=== PATIENT | male | born 1970 | race American Indian/Alaskan Native ===

== ENCOUNTER 2018-10-24 21:18 | Inpatient (IN) | payer OTHER ==
[2018-10-24] MEDS ORDERED: Labetalol 25mg/5ml Syringe IVP STA ×4 (22:04→23:38)
[2018-10-24] MEDS ORDERED: Labetalol 5mg/ml (4ml) ONE ×4 (22:05→23:29)
--- NOTE | 2018-10-24 22:05 | C.PDOC ---
History Of Present Illness 48 year old male presents to the ER stating he has been feeling SOB on exertion for the past 2-3 days. Denies chest pain, lightheadedness. nausea, vomiting, or any PMHx. Chief Complaint (Nursing): Shortness Of Breath History Per: Patient History/Exam Limitations: no limitations Onset/Duration Of Symptoms: Days (2-3) Current Symptoms Are (Timing): Still Present Current Respiratory Medications: See Home Med List Associated Symptoms: denies: Chest Pain, Light-headedness, Other (Nausea, vomiting) Recent travel outside of the [place]: No Past Medical History Reviewed: Historical Data, Nursing Documentation, Vital Signs Vital Signs: Last Vital Signs Temp 97.5 F L 10/24/18 21:42 Pulse 120 H 10/24/18 21:42 Resp 36 H 10/24/18 21:42 BP 220/140 H 10/24/18 21:42 Pulse Ox 96 10/24/18 21:42 Family History: States: Unknown Family Hx - Social History Hx Alcohol Use: No Hx Substance Use: No Review Of Systems Constitutional: Negative for: Fever, Chills Cardiovascular: Negative for: Chest Pain, Light Headedness Respiratory: Positive for: SOB with Excertion Gastrointestinal: Negative for: Nausea, Vomiting Neurological: Negative for: Weakness, Numbness Physical Exam - Physical Exam Appears: Non-toxic Skin: Normal Color, Warm, Dry Head: Atraumatic, Normacephalic Eye(s): bilateral: Normal Inspection, PERRL, EOMI Oral Mucosa: Moist Neck: Normal, Supple Chest: Symmetrical, No Tenderness Cardiovascular: Rhythm Regular, Other (Hypertensive) Respiratory: Normal Breath Sounds, No Rales, No Rhonchi, No Wheezing Gastrointestinal/Abdominal: Soft, No Tenderness Neurological/Psych: Oriented x3, Normal Speech ED Course And Treatment - Laboratory Results Result Diagrams: 10/24/18 22:18 10/24/18 22:18 O2 Sat by Pulse Oximetry: 96 (Room air) Pulse Ox Interpretation: Normal Progress Note: EKG ordered. Disposition Discussed With : Sonia Juares Doctor Will See Patient In The: Hospital Counseled Patient/Family Regarding: Diagnosis - Disposition Disposition: HOSPITALIZED Disposition Time: 23:42 Condition: STABLE Forms: [facility] ([place]) - POA Present On Arrival: None - Clinical Impression Clinical Impression: Hypertensive urgency, CHF (congestive heart failure), Non-STEMI (non-ST elevated myocardial infarction) - Scribe Statement The provider has reviewed the documentation as recorded by the Scribrgiffin Mccall All medical record entries made by the Scribe were at my direction and personally dictated by me. I have reviewed the chart and agree that the record accurately reflects my personal performance of the history, physical exam, medical decision making, and the department course for this patient. I have also personally directed, reviewed, and agree with the discharge instructions and disposition.
[2018-10-24] MEDS ORDERED: Labetalol 5 mg/ml Inj 20ML IV STA (22:21)
[2018-10-24 22:29] LABS: BASO # 0.1 K/uL (0.0-0.2); EOS # 0.1 K/uL (0.0-0.7); EOS % 1.1 % (0.0-4.0); HEMOGLOBIN 14.1 g/dL (12.0-18.0); LYMPH # 1.5 K/uL (1.0-4.3); MEAN CELL VOLUME 86.9 fL (80.0-94.0); MEAN CORPUSCULAR HEMOGLOBIN 27.8 pg (27.0-31.0); MEAN PLATELET VOLUME 10.7 fL (7.2-11.7); MONO # 0.5 K/uL (0.0-0.8); NEUT # 3.7 K/uL (1.8-7.0); NEUT % 63.9 % (50.0-75.0); NRBC % 0.2 % (0.0-2.0); RBC 5.06 Mil/uL (4.40-5.90); RED CELL DISTRIBUTION WIDTH 16.9 % (11.5-14.5); WHITE BLOOD COUNT 5.8 K/uL (4.8-10.8)
[2018-10-24] MEDS ORDERED: Labetalol 5mg/ml (4ml) IVP ONE (22:40)
[2018-10-24 22:43] LABS: INR 1.4; PROTHROMBIN TIME 15.4 SECONDS (9.7-12.2)
[2018-10-24 22:44] LABS: ALB/GLOB RATIO 1.1 (1.0-2.1); ALBUMIN 4.3 g/dL (3.5-5.0); BLOOD UREA NITROGEN 19 mg/dL (9-20); CALCIUM 8.8 mg/dl (8.6-10.4); GFR NON-AFRICAN AMERICAN > 60
[2018-10-24 22:45] LABS: ALT/SGPT 107 U/L (21-72); AST/SGOT 97 U/L (17-59)
[2018-10-24 22:57] LABS: B-TYPE NATRIURETIC PEPTIDE 8670 pg/mL (0-450)
[2018-10-24] MEDS ORDERED: Nitroglycerin 2% Ointment Foilpak UD TOP STA (22:58)
[2018-10-24] MEDS ORDERED: Nitroglycerin 2% Ointment Foilpak UD TOP ONE (23:06)
[2018-10-24 23:24] LABS: URINE BILIRUBIN NEGATIVE (NEGATIVE); URINE BLOOD 1+ (NEGATIVE); URINE CLARITY Clear (Clear); URINE COLOR Yellow (YELLOW); URINE GLUCOSE (UA) NORMAL (Normal); URINE HYALINE CAST 0-2 /lpf (0-2); URINE LEUKOCYTE ESTERASE NEG Leu/uL (Negative); URINE PROTEIN 2+ mg/dL (NEGATIVE)
--- NOTE | 2018-10-25 00:34 | CP.CCUPN ---
CCU Subjective - Physician Review Events Since Last Encounter (Free Text): 48 male with no significant past medical history came to ER complaining of SOB on exertion for couple days, no chest pain, no fever, no cough, no vomiting, no headache found to have elevated blood pressure, events reviewed CCU Objective - Vital Signs / Intake & Output Vital Signs (Last 4 hours): Vital Signs Temp Pulse Resp BP Pulse Ox 10/25/18 00:15 84 30 H 187/125 H 99 10/24/18 23:44 96 10/24/18 22:54 88 16 160/116 H 100 10/24/18 22:12 92 H 183/103 H 100 10/24/18 22:05 117 H 222/161 H 10/24/18 21:42 97.5 F L 120 H 36 H 220/140 H 96 Intake and Output (Last 8hrs): Intake & Output 10/24/18 10/24/18 10/25/18 14:59 22:59 06:59 Weight 220 lb - Physical Exam Head: Positive for: Atraumatic, Normocephalic Pupils: Positive for: PERRL Extroacular Muscles: Positive for: EOMI Conjunctiva: Positive for: Normal Ears: Positive for: Normal Mouth: Positive for: Moist Mucous Membranes Pharnyx: Positive for: Normal Nose (External): Positive for: Atraumatic Neck: Positive for: Normal Range of Motion Respiratory/Chest: Positive for: Rales Cardiovascular: Positive for: Regular Rate and Rhythm Abdomen: Positive for: Normal Bowel Sounds Upper Extremity: Positive for: Normal Inspection Lower Extremity: Positive for: Normal Inspection Neurological: Positive for: GCS=15, Speech Normal Skin: Positive for: Normal Color Psychiatric: Positive for: Alert, Oriented x 3 - Patient Studies Lab Studies: Lab Studies 10/24/18 10/24/18 10/24/18 Range/Units 23:19 22:18 22:18 WBC (4.8-10.8) K/uL RBC (4.40-5.90) Mil/uL Hgb (12.0-18.0) g/dL Hct (35.0-51.0) % MCV (80.0-94.0) fL MCH (27.0-31.0) pg MCHC (33.0-37.0) g/dL RDW (11.5-14.5) % Plt Count (130-400) K/uL MPV (7.2-11.7) fL Neut % (Auto) (50.0-75.0) % Lymph % (Auto) (20.0-40.0) % Henry % (Auto) (0.0-10.0) % Eos % (Auto) (0.0-4.0) % Baso % (Auto) (0.0-2.0) % Neut # (Auto) (1.8-7.0) K/uL Lymph # (Auto) (1.0-4.3) K/uL Henry # (Auto) (0.0-0.8) K/uL Eos # (Auto) (0.0-0.7) K/uL Baso # (Auto) (0.0-0.2) K/uL PT 15.4 H (9.7-12.2) SECONDS INR 1.4 APTT 32 (21-34) SECONDS Sodium 137 (132-148) mmol/L Potassium 4.3 (3.6-5.2) mmol/L Chloride 104 (98-107) mmol/L Carbon Dioxide 22 (22-30) mmol/L Anion Gap 16 (10-20) BUN 19 (9-20) mg/dL Creatinine 1.0 (0.8-1.5) mg/dL Est GFR ( Amer) > 60 Est GFR (Non-Af Amer) > 60 Random Glucose 111 H (75-110) mg/dL Calcium 8.8 (8.6-10.4) mg/dl Total Bilirubin 1.4 H (0.2-1.3) mg/dL AST 97 H (17-59) U/L ALT 107 H (21-72) U/L Alkaline Phosphatase 144 H (38-126) U/L Troponin I 0.1290 H* (0.00-0.120) ng/mL NT-Pro-B Natriuret Pep 8670 H (0-450) pg/mL Total Protein 8.1 (6.3-8.3) g/dL Albumin 4.3 (3.5-5.0) g/dL Globulin 3.8 (2.2-3.9) gm/dL Albumin/Globulin Ratio 1.1 (1.0-2.1) Urine Color Yellow (YELLOW) Urine Clarity Clear (Clear) Urine pH 5.0 (5.0-8.0) Ur Specific [place] 1.023 (1.003-1.030) Urine Protein 2+ H (NEGATIVE) mg/dL Urine Glucose (UA) Normal (Normal) mg/dL Urine Ketones Negative (NEGATIVE) mg/dL Urine Blood 1+ H (NEGATIVE) Urine Nitrate Negative (NEGATIVE) Urine Bilirubin Negative (NEGATIVE) Urine Urobilinogen 2.0 (0.2-1.0) mg/dL Ur Leukocyte Esterase Neg (Negative) González/uL Urine WBC (Auto) 1 (0-5) /hpf Urine RBC (Auto) < 1 (0-3) /hpf Hyaline Casts 0-2 (0-2) /lpf 10/24/18 Range/Units 22:18 WBC 5.8 (4.8-10.8) K/uL RBC 5.06 (4.40-5.90) Mil/uL Hgb 14.1 (12.0-18.0) g/dL Hct 43.9 (35.0-51.0) % MCV 86.9 (80.0-94.0) fL MCH 27.8 (27.0-31.0) pg MCHC 32.0 L (33.0-37.0) g/dL RDW 16.9 H (11.5-14.5) % Plt Count 289 (130-400) K/uL MPV 10.7 (7.2-11.7) fL Neut % (Auto) 63.9 (50.0-75.0) % Lymph % (Auto) 25.0 (20.0-40.0) % Henry % (Auto) 9.0 (0.0-10.0) % Eos % (Auto) 1.1 (0.0-4.0) % Baso % (Auto) 1.0 (0.0-2.0) % Neut # (Auto) 3.7 (1.8-7.0) K/uL Lymph # (Auto) 1.5 (1.0-4.3) K/uL Henry # (Auto) 0.5 (0.0-0.8) K/uL Eos # (Auto) 0.1 (0.0-0.7) K/uL Baso # (Auto) 0.1 (0.0-0.2) K/uL PT (9.7-12.2) SECONDS INR APTT (21-34) SECONDS Sodium (132-148) mmol/L Potassium (3.6-5.2) mmol/L Chloride (98-107) mmol/L Carbon Dioxide (22-30) mmol/L Anion Gap (10-20) BUN (9-20) mg/dL Creatinine (0.8-1.5) mg/dL Est GFR ( Amer) Est GFR (Non-Af Amer) Random Glucose (75-110) mg/dL Calcium (8.6-10.4) mg/dl Total Bilirubin (0.2-1.3) mg/dL AST (17-59) U/L ALT (21-72) U/L Alkaline Phosphatase (38-126) U/L Troponin I (0.00-0.120) ng/mL NT-Pro-B Natriuret Pep (0-450) pg/mL Total Protein (6.3-8.3) g/dL Albumin (3.5-5.0) g/dL Globulin (2.2-3.9) gm/dL Albumin/Globulin Ratio (1.0-2.1) Urine Color (YELLOW) Urine Clarity (Clear) Urine pH (5.0-8.0) Ur Specific [place] (1.003-1.030) Urine Protein (NEGATIVE) mg/dL Urine Glucose (UA) (Normal) mg/dL Urine Ketones (NEGATIVE) mg/dL Urine Blood (NEGATIVE) Urine Nitrate (NEGATIVE) Urine Bilirubin (NEGATIVE) Urine Urobilinogen (0.2-1.0) mg/dL Ur Leukocyte Esterase (Negative) [place]/uL Urine WBC (Auto) (0-5) /hpf Urine RBC (Auto) (0-3) /hpf Hyaline Casts (0-2) /lpf Laboratory Results - last 24 hr 10/24/18 10/24/18 10/24/18 22:18 22:18 22:18 WBC 5.8 RBC 5.06 Hgb 14.1 Hct 43.9 MCV 86.9 MCH 27.8 MCHC 32.0 L RDW 16.9 H Plt Count 289 MPV 10.7 Neut % (Auto) 63.9 Lymph % (Auto) 25.0 Henry % (Auto) 9.0 Eos % (Auto) 1.1 Baso % (Auto) 1.0 Neut # (Auto) 3.7 Lymph # (Auto) 1.5 [place] # (Auto) 0.5 Eos # (Auto) 0.1 Baso # (Auto) 0.1 PT 15.4 H INR 1.4 APTT 32 Sodium 137 Potassium 4.3 Chloride 104 Carbon Dioxide 22 Anion Gap 16 BUN 19 Creatinine 1.0 Est GFR ( Amer) > 60 Est GFR (Non-Af Amer) > 60 Random Glucose 111 H Calcium 8.8 Total Bilirubin 1.4 H AST 97 H ALT 107 H Alkaline Phosphatase 144 H Troponin I 0.1290 H* NT-Pro-B Natriuret Pep 8670 H Total Protein 8.1 Albumin 4.3 Globulin 3.8 Albumin/Globulin Ratio 1.1 Urine Color Urine Clarity Urine pH Ur Specific [place] Urine Protein Urine Glucose (UA) Urine Ketones Urine Blood Urine Nitrate Urine Bilirubin Urine Urobilinogen Ur Leukocyte Esterase Urine WBC (Auto) Urine RBC (Auto) Hyaline Casts 10/24/18 23:19 WBC RBC Hgb Hct MCV MCH MCHC RDW Plt Count MPV Neut % (Auto) Lymph % (Auto) Henry % (Auto) Eos % (Auto) Baso % (Auto) Neut # (Auto) Lymph # (Auto) Henry # (Auto) Eos # (Auto) Baso # (Auto) PT INR APTT Sodium Potassium Chloride Carbon Dioxide Anion Gap BUN Creatinine Est GFR ( Amer) Est GFR (Non-Af Amer) Random Glucose Calcium Total Bilirubin AST ALT Alkaline Phosphatase Troponin I NT-Pro-B Natriuret Pep Total Protein Albumin Globulin Albumin/Globulin Ratio Urine Color Yellow Urine Clarity Clear Urine pH 5.0 Ur Specific [place] 1.023 Urine Protein 2+ H Urine Glucose (UA) Normal Urine Ketones Negative Urine Blood 1+ H Urine Nitrate Negative Urine Bilirubin Negative Urine Urobilinogen 2.0 Ur Leukocyte Esterase Neg Urine WBC (Auto) 1 Urine RBC (Auto) < 1 Hyaline Casts 0-2 EKG/Cardiology Studies: Cardiology / EKG Studies 10/24/18 21:44 EKG [ELECTROCARDIOGRAM] Stat Comment: Mode Of Transportation: BED Reason For Exam: cp Assessment/Plan - Assessment and Plan (Free Text) Assessment: A/P Respiratory insufficiency, uncontrolled HTN, CHF, NSTEMI - Blood pressure control - Aspirin, Lasix, nitrate - Cardiac enzymes - Cardiology consult as per PMD - Electrocardiogram - DVT prophylaxis Critical care 35 min
[2018-10-25] MEDS: Nitroglycerin 2% Ointment Foilpak UD TOP ONE ×2 (02:19→06:57)
[2018-10-25 06:37] LABS: BASO # 0.1 K/uL (0.0-0.2); BASO % 0.9 % (0.0-2.0); EOS % 0.6 % (0.0-4.0); HEMOGLOBIN 12.7 g/dL (12.0-18.0); LYMPH # 1.2 K/uL (1.0-4.3); LYMPH % 20.7 % (20.0-40.0); MEAN CELL VOLUME 86.7 fL (80.0-94.0); MEAN CORPUSCULAR HEMOGLOBIN 28.2 pg (27.0-31.0); MEAN CORPUSCULAR HGB CONC 32.5 g/dL (33.0-37.0); MEAN PLATELET VOLUME 10.7 fL (7.2-11.7); MONO # 0.6 K/uL (0.0-0.8); NEUT # 3.8 K/uL (1.8-7.0); NEUT % 67.8 % (50.0-75.0); NRBC % 0.2 % (0.0-2.0); RBC 4.49 Mil/uL (4.40-5.90); RED CELL DISTRIBUTION WIDTH 16.4 % (11.5-14.5); WHITE BLOOD COUNT 5.7 K/uL (4.8-10.8)
[2018-10-25 06:51] LABS: ALB/GLOB RATIO 1.1 (1.0-2.1); ALBUMIN 3.7 g/dL (3.5-5.0); ALT/SGPT 92 U/L (21-72); AST/SGOT 74 U/L (17-59); BLOOD UREA NITROGEN 18 mg/dL (9-20); CALCIUM 8.4 mg/dl (8.6-10.4); GFR NON-AFRICAN AMERICAN > 60
[2018-10-25] MEDS ORDERED: Nitroglycerin 2% Ointment Foilpak UD TOP ONE (06:56)
--- NOTE | 2018-10-25 08:25 | RAD ---
Chest x-ray single frontal view HISTORY: Chest pain. Comparison: None available. Findings: Moderate to severe venous congestion. Right hilar prominence. Small left pleural effusion. Cardiomegaly. Upper lobe granulomatous changes. Degenerative changes in the spine and shoulders. Impression: Moderate to severe venous congestion. Right hilar prominence. Small left pleural effusion. Cardiomegaly. Upper lobe granulomatous changes.
--- NOTE | 2018-10-25 14:06 | CT ---
Date of service: 10/25/2018 PROCEDURE: CT HEAD WITHOUT CONTRAST. HISTORY: HTN, accerlerated COMPARISON: None available. TECHNIQUE: Axial computed tomography images were obtained through the head/brain without intravenous contrast. Radiation dose: Total exam DLP = 1152.22 mGy-cm. This CT exam was performed using one or more of the following dose reduction techniques: Automated exposure control, adjustment of the mA and/or kV according to patient size, and/or use of iterative reconstruction technique. FINDINGS: HEMORRHAGE: No intracranial hemorrhage. BRAIN: Coulter-white matter differentiation is preserved. There is no mass, mass effect or abnormal extra-axial fluid collection. There are scattered small coarse calcifications in both cerebral hemispheres nonspecific and could be a sequela of remote infection/inflammation. There is no territorial infarction. The midline sagittal structures are normal. VENTRICLES: The ventricles are normal in size, shape and configuration. CALVARIUM: There is no calvarial fracture. Small left medial periorbital soft tissue hematoma. PARANASAL SINUSES: Predominantly clear. MASTOID AIR CELLS: Predominantly clear. OTHER FINDINGS: None. IMPRESSION: No acute intracranial abnormality.
--- NOTE | 2018-10-25 14:12 | CON ---
DATE: 10/25/2018nsion. HISTORY OF PRESENT ILLNESS: The patient is 48-year-old male who is unaware of any past medical history; however, he has not seen a physician in many years and he takes aspirin and Advil for headache. He presented because of shortness of breath for the past 2 to 3 days. He denies any dizziness, occipital headache or chest pain. The patient was found to have accelerated hypertension. The patient was evaluated by validation specialist, but ICU admission was declined. At the time of my evaluation, the patient denies any chest pain, blurry vision, headache or dizziness. SOCIAL HISTORY: The patient is a smoker, drinker. 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 He is single but has children. MEDICATIONS: Aspirin 325 mg daily, heparin 5000 units subcutaneously every 8 hours, Lopressor 25 mg twice a day, Zestril 5 mg once a day. PHYSICAL EXAMINATION: GENERAL: The patient is a middle-aged male who does not appear to be in acute distress. VITAL SIGNS: Most recent blood pressure is 189/134, heart rate 88, temperature 98.6, respirations 18. HEENT: Normocephalic. NECK: JVD. CHEST: Clear. HEART: S1 and S2 regular. ABDOMEN: Soft. EXTREMITIES: No edema. LABORATORY DATA: Today's hemoglobin, hematocrit, white count and platelet count are within normal limit. Today's SMA-7 is within normal limits except for carbon dioxide of 19. First troponin 0.129 which is slightly elevated, second one is 0.107. ProBNP is 8670. INR is 1.4. PTT 32. EKG revealed sinus tachycardia, left atrial enlargement, left anterior fascicular block, LVH with repolarization changes. Chest x-ray revealed cardiomegaly with moderate CHF. Echocardiography study revealed LVH with severely depressed left ventricular systolic function and mild circumferential pericardial effusion, moderate mitral insufficiency, and moderate pulmonary hypertension. ASSESSMENT: 1. Hypertensive urgency. 2. Consider hypertensive cardiomyopathy. RECOMMENDATIONS: I will start the patient on Lasix at 20 mg intravenous twice a day, clonidine 0.2 mg every 8 hours, increase Zestril to 10 mg daily, Lopressor to 50 mg twice a day, Aldactone at 25 mg orally daily, to consider a full anticoagulation when the blood pressure is optimally controlled. Obtain urine drug screen as well as head CT scan without contrast. Tanner Pepe MD [facility] # [id number]
--- NOTE | 2018-10-25 14:50 | CARD ---
APPROVED REPORT Date of service: 10/25/2018 EXAM: Two-dimensional and M-mode echocardiogram with Doppler and color Doppler. Other Information Quality : GoodRhythm : INDICATION Congestive Heart Failure 2D DIMENSIONS IVSd1.3 (0.7-1.1cm)LVDd6.3 (3.9-5.9cm) PWd1.6 (0.7-1.1cm)LA Xzlccv196 (18-58mL) LVDs5.2 (2.5-4.0cm)FS (%) 17.0 % LVEF (%)34.9 (>50%)LVEF (Lopez's)35 % M-Mode DIMENSIONS Left Atrium (MM)5.58 (2.5-4.0cm)IVSd1.70 (0.7-1.1cm) Aortic Root3.66 (2.2-3.7cm)LVDd6.72 (4.0-5.6cm) Aortic Cusp Exc.2.85 (1.5-2.0cm)PWd1.73 (0.7-1.1cm) FS (%) 16 %LVDs5.62 (2.0-3.8cm) LVEF (%)34 (>50%) Mitral Valve MV E Iwnhlmqh02.9cm/sMV A Roojtbsg89.2cm/sE/A ratio2.3 ILLP035.87 cm/s TDI Lateral E' Peak V7.00cm/sMedial E' Peak V5.19cm/sE/Lateral E'11.0 E/Medial E'14.8 Tricuspid Valve TR Peak Qmdhjter435jh/sTR Peak Gr.09qmPsZJHU27ynXy LEFT VENTRICLE The Left Ventricle is mildly dilated. There is borderline concentric left ventricular hypertrophy. The systolic function is severely impaired. The left ventricular diastolic function is normal. RIGHT VENTRICLE The right ventricle is normal size. ATRIA The left atrium is moderately dilated. The right atrium is moderately dilated. AORTIC VALVE The aortic valve is normal in structure. MITRAL VALVE Mitral regurgitation is mild to moderate. TRICUSPID VALVE There is moderate to severe tricuspid regurgitation. <Conclusion> Severe LV systolic dysfunction. Dilated LA and LV. Mild to moderat eMR. Moderate to severe TR.
[2018-10-25] MEDS ORDERED: Nitroglycerin 2% Ointment Foilpak UD TOP PRN (16:36)
--- NOTE | 2018-10-25 19:43 | CP.PCM.HP ---
History of Present Illness - History of Present Illness History of Present Illness: pt came to ed for sob Present on Admission - Present on Admission Any Indicators Present on Admission: No Review of Systems - Review of Systems Systems not reviewed;Unavailable: Acuity of Condition, Respiratory Distress - Constitutional Constitutional: Excessive Sweating, Fatigue - EENT Eyes: As Per HPI Ears: As Per HPI Nose/Mouth/Throat: As Per HPI - Cardiovascular Cardiovascular: Diaphoresis, Dyspnea - Respiratory Respiratory: Dyspnea - Gastrointestinal Gastrointestinal: As Per HPI - Genitourinary Genitourinary: As Per HPI - Reproductive: Male Reproductive:Male: As Per HPI - Musculoskeletal Musculoskeletal: As Per HPI - Integumentary Integumentary: As Per HPI - Neurological Neurological: As Per HPI - Psychiatric Psychiatric: As Per HPI - Endocrine Endocrine: As Per HPI - Hematologic/Lymphatic Hematologic: As Per HPI Past Patient History - Past Medical History & Family History Past Medical History?: No - Past Social History Smoking Status: Current Some Days Smoker - MUSCULOSKELETAL/RHEUMATOLOGICAL Hx Falls: No - PSYCHIATRIC Hx Substance Use: No - SURGICAL HISTORY Hx Surgeries: No - ANESTHESIA Hx Anesthesia: No Has any member of the family had a problem w/ anesthesia?: No Meds Allergies/Adverse Reactions: Allergies Allergy/AdvReac Type Severity Reaction Status Date / Time No Known Allergies Allergy Unverified 10/24/18 21:45 Results - Vital Signs Recent Vital Signs: Last Vital Signs Temp 98.5 F 10/25/18 14:50 Pulse 82 10/25/18 15:00 Resp 24 10/25/18 14:50 BP 170/109 H 10/25/18 14:50 Pulse Ox 95 10/25/18 14:50 - Labs Result Diagrams: 10/25/18 06:26 10/25/18 06:26 Labs: Laboratory Results - last 24 hr 10/24/18 10/24/18 10/24/18 22:18 22:18 22:18 WBC 5.8 RBC 5.06 Hgb 14.1 Hct 43.9 MCV 86.9 MCH 27.8 MCHC 32.0 L RDW 16.9 H Plt Count 289 MPV 10.7 Neut % (Auto) 63.9 Lymph % (Auto) 25.0 [place] % (Auto) 9.0 Eos % (Auto) 1.1 Baso % (Auto) 1.0 Neut # (Auto) 3.7 Lymph # (Auto) 1.5 [place] # (Auto) 0.5 Eos # (Auto) 0.1 Baso # (Auto) 0.1 PT 15.4 H INR 1.4 APTT 32 Sodium 137 Potassium 4.3 Chloride 104 Carbon Dioxide 22 Anion Gap 16 BUN 19 Creatinine 1.0 Est GFR ( Amer) > 60 Est GFR (Non-Af Amer) > 60 Random Glucose 111 H Calcium 8.8 Total Bilirubin 1.4 H AST 97 H ALT 107 H Alkaline Phosphatase 144 H Troponin I 0.1290 H* NT-Pro-B Natriuret Pep 8670 H Total Protein 8.1 Albumin 4.3 Globulin 3.8 Albumin/Globulin Ratio 1.1 Urine Color Urine Clarity Urine pH Ur Specific [place] Urine Protein Urine Glucose (UA) Urine Ketones Urine Blood Urine Nitrate Urine Bilirubin Urine Urobilinogen Ur Leukocyte Esterase Urine WBC (Auto) Urine RBC (Auto) Hyaline Casts 10/24/18 10/25/18 10/25/18 23:19 02:58 06:26 WBC 5.7 RBC 4.49 Hgb 12.7 Hct 38.9 MCV 86.7 MCH 28.2 MCHC 32.5 L RDW 16.4 H Plt Count 231 MPV 10.7 Neut % (Auto) 67.8 Lymph % (Auto) 20.7 [place] % (Auto) 10.0 Eos % (Auto) 0.6 Baso % (Auto) 0.9 Neut # (Auto) 3.8 Lymph # (Auto) 1.2 [place] # (Auto) 0.6 Eos # (Auto) 0.0 Baso # (Auto) 0.1 PT INR APTT Sodium Potassium Chloride Carbon Dioxide Anion Gap BUN Creatinine Est GFR ( Amer) Est GFR (Non-Af Amer) Random Glucose Calcium Total Bilirubin AST ALT Alkaline Phosphatase Troponin I 0.1070 NT-Pro-B Natriuret Pep Total Protein Albumin Globulin Albumin/Globulin Ratio Urine Color Yellow Urine Clarity Clear Urine pH 5.0 Ur Specific [place] 1.023 Urine Protein 2+ H Urine Glucose (UA) Normal Urine Ketones Negative Urine Blood 1+ H Urine Nitrate Negative Urine Bilirubin Negative Urine Urobilinogen 2.0 Ur Leukocyte Esterase Neg Urine WBC (Auto) 1 Urine RBC (Auto) < 1 Hyaline Casts 0-2 10/25/18 06:26 WBC RBC Hgb Hct MCV MCH MCHC RDW Plt Count MPV Neut % (Auto) Lymph % (Auto) [place] % (Auto) Eos % (Auto) Baso % (Auto) Neut # (Auto) Lymph # (Auto) [place] # (Auto) Eos # (Auto) Baso # (Auto) PT INR APTT Sodium 136 Potassium 4.2 Chloride 104 Carbon Dioxide 19 L Anion Gap 16 BUN 18 Creatinine 1.1 Est GFR ( Amer) > 60 Est GFR (Non-Af Amer) > 60 Random Glucose 108 Calcium 8.4 L Total Bilirubin 1.1 AST 74 H D ALT 92 H Alkaline Phosphatase 122 Troponin I NT-Pro-B Natriuret Pep Total Protein 7.2 Albumin 3.7 Globulin 3.5 Albumin/Globulin Ratio 1.1 Urine Color Urine Clarity Urine pH Ur Specific [place] Urine Protein Urine Glucose (UA) Urine Ketones Urine Blood Urine Nitrate Urine Bilirubin Urine Urobilinogen Ur Leukocyte Esterase Urine WBC (Auto) Urine RBC (Auto) Hyaline Casts Assessment & Plan - Assessment and Plan (Free Text) Assessment: ac respiratory discomfort positive triponin chf Plan: as per orders - Date & Time Date: 10/25/18 Time: 19:42
[2018-10-26 09:22] LABS: BARBITURATES, UR NEGATIVE (NEGATIVE); BENZODIAZEPINES, UR NEGATIVE (NEGATIVE); OPIATES, UR NEGATIVE (NEGATIVE); PHENCYCLIDINE, UR NEGATIVE (NEGATIVE)
--- NOTE | 2018-10-26 10:00 | CP.PCM.PN ---
Subjective - Date & Time of Evaluation Date of Evaluation: 10/26/18 Time of Evaluation: 09:57 - Subjective Subjective: pt feels beter less sob no chest pain Objective - Vital Signs/Intake and Output Vital Signs (last 24 hours): Temp Pulse Resp BP Pulse Ox 98.9 F 82 18 152/98 H 98 10/26/18 07:00 10/26/18 07:30 10/26/18 07:00 10/26/18 07:00 10/26/18 07:00 - Medications Medications: Current Medications Aspirin (Aspirin) 325 mg PO DAILY [facility] Last Admin: 10/25/18 10:15 Dose: 325 mg Clonidine HCl (Catapres) 0.2 mg PO TID [facility] Last Admin: 10/25/18 17:43 Dose: 0.2 mg Furosemide (Lasix) 40 mg IVP Q12 [facility] Last Admin: 10/25/18 21:55 Dose: 40 mg Heparin Sodium (Porcine) (Heparin) 5,000 units SC Q8 [facility] Last Admin: 10/26/18 05:33 Dose: 5,000 units Influenza Virus Vaccine (Flucelvax Quad [id number] Syr) 60 mcg IM .ONCE ONE Stop: 10/27/18 14:01 Lisinopril (Zestril) 10 mg PO DAILY [facility] Metoprolol Tartrate (Lopressor) 50 mg PO BID [facility] Last Admin: 10/25/18 17:45 Dose: 50 mg Nitroglycerin (Nitro-Bid 2% Oint) 1 ea TOP Q6 PRN PRN Reason: Systolic Blood Pressure Spironolactone (Aldactone) 25 mg PO DAILY [facility] Last Admin: 10/25/18 13:20 Dose: 25 mg - Labs Labs: 10/25/18 06:26 10/25/18 06:26 PT 15.4 SECONDS (9.7-12.2) H 10/24/18 22:18 INR 1.4 10/24/18 22:18 APTT 32 SECONDS (21-34) 10/24/18 22:18 - Constitutional Appears: Non-toxic - Head Exam Head Exam: ATRAUMATIC - Eye Exam Eye Exam: Normal appearance - ENT Exam ENT Exam: Mucous Membranes Moist - Neck Exam Neck Exam: Full ROM - Respiratory Exam Respiratory Exam: Decreased Breath Sounds - Cardiovascular Exam Cardiovascular Exam: REGULAR RHYTHM - GI/Abdominal Exam GI & Abdominal Exam: Normal Bowel Sounds - Exam Exam: NORMAL INSPECTION - Extremities Exam Extremities Exam: Normal Inspection - Neurological Exam Neurological Exam: Awake, Normal Gait, Oriented x3 - Psychiatric Exam Psychiatric exam: Normal Affect - Skin Skin Exam: Normal Color Assessment and Plan - Assessment and Plan (Free Text) Assessment: ac chf htn postive triponin Plan: cont curent treatment will discus with cardiology possble cardiac cath
[2018-10-26 12:44] LABS: TROPONIN I 0.07 ng/mL (0.00-0.120)
--- NOTE | 2018-10-26 15:05 | PN ---
DATE: 10/26/2018 SUBJECTIVE: The patient's shortness breath has improved. PHYSICAL EXAMINATION: VITAL SIGNS: Blood pressure 152/96, heart rate 82, temperature 98.9, respirations 18. HEENT: Normocephalic. CHEST: Clear. HEART: S1, S2. EXTREMITIES: No edema. LABORATORY DATA: Urine drug screen is negative. Official echocardiography study revealed severe left ventricular systolic function, moderate to severe tricuspid insufficiency and mild to moderate mitral insufficiency. ASSESSMENT: 1. cardiomyopathy. 2. Hypertension. 3. Borderline troponin elevation upon presentation. RECOMMENDATIONS: Continue Aldactone 25 mg once a day, aspirin 325 mg once a day, clonidine 0.2 mg t.i.d., subcutaneous heparin 5000 intravenous every 8 hours, Lasix 40 mg intravenous twice a day, Lopressor 50 mg twice a day, Zestril 10 mg once a day. Cardiac catheterization and its risks were fully explained to the patient who understood and agreed for the procedure which is scheduled for Monday of next week around noon time. Tanner Pepe MD
[2018-10-27] MEDS ORDERED: Influenza Vaccine 60 mcg/0.5 mL SYR (4YR UP) IM ONE (14:00)
--- NOTE | 2018-10-27 15:58 | PN ---
DATE: 10/27/2018 SUBJECTIVE: The patient's shortness of breath improved. He denies any chest pain. PHYSICAL EXAMINATION: VITAL SIGNS: Blood pressure 145/94, heart rate 83, temperature 97.8, respirations 20. HEENT: Normocephalic. CHEST: Clear. HEART: S1 and S2, regular. EXTREMITIES: No edema. ASSESSMENT: 1. Cardiomyopathy. 2. Uncontrolled hypertension. 3. Borderline troponin elevation. RECOMMENDATIONS: Continue Aldactone 25 mg once a day, aspirin 325 mg once a day, increase clonidine to 0.3 mg t.i.d., continue Lasix 40 mg intravenous twice a day, Lopressor 50 mg twice a day, Zestril 10 mg once a day. Obtain a followup BMP in a.m. The patient is scheduled for cardiac catheterization on Monday and the plan was discussed at length with the patient's sister on the phone. Tanner Pepe MD
--- NOTE | 2018-10-27 17:19 | CARD ---
APPROVED REPORT Date of service: 10/24/2018 EKG Measurement Heart [id number] <Conclusion> Sinus tachycardia Left atrial enlargement Left anterior fascicular block Left ventricular hypertrophy with repolarization abnormality Abnormal ECG
--- NOTE | 2018-10-28 10:42 | CP.PCM.PN ---
Subjective - Date & Time of Evaluation Date of Evaluation: 10/28/18 Time of Evaluation: 10:40 - Subjective Subjective: feels beter no sob or chest pain will have c cath in am Objective - Vital Signs/Intake and Output Vital Signs (last 24 hours): Temp Pulse Resp BP Pulse Ox 98.2 F 80 20 148/104 H 98 10/28/18 07:00 10/28/18 07:00 10/28/18 07:00 10/28/18 09:00 10/28/18 07:00 - Medications Medications: Current Medications Aspirin (Aspirin) 325 mg PO DAILY [facility] Last Admin: 10/28/18 09:00 Dose: 325 mg Clonidine HCl (Catapres) 0.3 mg PO TID [facility] Last Admin: 10/28/18 09:00 Dose: 0.3 mg Furosemide (Lasix) 40 mg IVP Q12 [facility] Last Admin: 10/28/18 09:00 Dose: 40 mg Lisinopril (Zestril) 10 mg PO DAILY [facility] Last Admin: 10/28/18 09:00 Dose: 10 mg Metoprolol Tartrate (Lopressor) 50 mg PO BID [facility] Last Admin: 10/28/18 09:00 Dose: 50 mg Nitroglycerin (Nitro-Bid 2% Oint) 1 ea TOP Q6 PRN PRN Reason: Systolic Blood Pressure Spironolactone (Aldactone) 25 mg PO DAILY [facility] Last Admin: 10/28/18 09:00 Dose: 25 mg - Labs Labs: 10/25/18 06:26 10/25/18 06:26 PT 15.4 SECONDS (9.7-12.2) H 10/24/18 22:18 INR 1.4 10/24/18 22:18 APTT 32 SECONDS (21-34) 10/24/18 22:18 - Constitutional Appears: Non-toxic - Head Exam Head Exam: ATRAUMATIC - Eye Exam Eye Exam: Normal appearance, PERRL Pupil Exam: NORMAL ACCOMODATION - ENT Exam ENT Exam: Mucous Membranes Moist - Neck Exam Neck Exam: Full ROM - Respiratory Exam Respiratory Exam: NORMAL BREATHING PATTERN - Cardiovascular Exam Cardiovascular Exam: REGULAR RHYTHM - GI/Abdominal Exam GI & Abdominal Exam: Normal Bowel Sounds - Rectal Exam Rectal Exam: NORMAL INSPECTION - Extremities Exam Extremities Exam: Normal Inspection - Back Exam Back Exam: NORMAL INSPECTION - Neurological Exam Neurological Exam: Awake, Normal Gait, Oriented x3 - Psychiatric Exam Psychiatric exam: Normal Mood - Skin Skin Exam: Normal Color Assessment and Plan - Assessment and Plan (Free Text) Assessment: chf cad Plan: cardiac cath in am cont all med
--- NOTE | 2018-10-28 15:54 | PN ---
DATE: 10/28/2018 SUBJECTIVE: The patient's shortness of breath has improved. No chest pain. PHYSICAL EXAMINATION: VITAL SIGNS: Blood pressure 132/99, heart rate 80, temperature 98.2, respirations 20. HEENT: Normocephalic. CHEST: Clear. HEART: S1 and S2, regular. EXTREMITIES: No edema. ASSESSMENT: 1. Cardiomyopathy. 2. Borderline troponin elevation. 3. Uncontrolled hypertension. RECOMMENDATIONS: Continue Aldactone 25 mg once a day, clonidine 0.3 mg twice a day, Lopressor 50 mg twice a day, increase Zestril to 20 mg daily. Obtain BMP today. The patient will be kept n.p.o. for cardiac catheterization tomorrow. Tanner Pepe MD
[2018-10-28 17:38] LABS: BLOOD UREA NITROGEN 27 mg/dL (9-20); GFR NON-AFRICAN AMERICAN > 60
[2018-10-29] MEDS ORDERED: Iodixanol 320 MG/ML 100 ML BOTTLE IV ONE (12:27)
[2018-10-29] MEDS ORDERED: Iohexol 350mg/ml 100 ML ONE (12:56)
[2018-10-29] MEDS ORDERED: Midazolam 2 MG/2 ML VIAL ONE (13:07)
--- NOTE | 2018-10-29 17:45 | CP.PCM.PN ---
Subjective - Date & Time of Evaluation Date of Evaluation: 10/29/18 Time of Evaluation: 17:43 - Subjective Subjective: pt had c cath don coronay ok htn ht disease will have evaluation by dr ghotra Objective - Vital Signs/Intake and Output Vital Signs (last 24 hours): Temp Pulse Resp BP Pulse Ox 97.1 F L 73 18 134/97 H 98 10/29/18 15:47 10/29/18 17:00 10/29/18 15:47 10/29/18 15:47 10/29/18 15:47 Intake and Output: 10/29/18 10/29/18 06:59 18:59 Intake Total 820 Balance 820 - Medications Medications: Current Medications Aspirin (Aspirin) 325 mg PO DAILY [facility] Last Admin: 10/29/18 10:24 Dose: 325 mg Clonidine HCl (Catapres) 0.3 mg PO TID [facility] Last Admin: 10/29/18 13:46 Dose: Not Given Furosemide (Lasix) 40 mg IVP Q12 [facility] Last Admin: 10/29/18 10:24 Dose: 40 mg Lisinopril (Zestril) 20 mg PO DAILY [facility] Last Admin: 10/29/18 10:25 Dose: 20 mg Metoprolol Tartrate (Lopressor) 50 mg PO BID [facility] Last Admin: 10/29/18 10:26 Dose: 50 mg Nitroglycerin (Nitro-Bid 2% Oint) 1 ea TOP Q6 PRN PRN Reason: Systolic Blood Pressure Spironolactone (Aldactone) 25 mg PO DAILY [facility] Last Admin: 10/29/18 10:25 Dose: 25 mg - Labs Labs: 10/25/18 06:26 10/28/18 16:38 PT 15.4 SECONDS (9.7-12.2) H 10/24/18 22:18 INR 1.4 10/24/18 22:18 APTT 32 SECONDS (21-34) 10/24/18 22:18 - Constitutional Appears: Non-toxic - Head Exam Head Exam: NORMAL INSPECTION - Eye Exam Eye Exam: Normal appearance Pupil Exam: NORMAL ACCOMODATION - ENT Exam ENT Exam: Mucous Membranes Moist - Neck Exam Neck Exam: Full ROM - Respiratory Exam Respiratory Exam: Clear to Ausculation Bilateral - Cardiovascular Exam Cardiovascular Exam: REGULAR RHYTHM - GI/Abdominal Exam GI & Abdominal Exam: Soft - Extremities Exam Extremities Exam: Normal Inspection - Back Exam Back Exam: NORMAL INSPECTION - Neurological Exam Neurological Exam: Alert, Awake, Oriented x3 - Psychiatric Exam Psychiatric exam: Normal Affect - Skin Skin Exam: Normal Color Assessment and Plan - Assessment and Plan (Free Text) Assessment: htn ht disease chf Plan: as per orders
--- NOTE | 2018-10-30 06:39 | CARDCATH ---
PROCEDURE DATE: 10/29/2018 LEFT HEART CATHETERIZATION CLINICAL INDICATIONS: The patient is a 48-year-old male who presented because of shortness of breath and echocardiographic study was consistent with dilated cardiomyopathy. Cardiac catheterization was recommended. The procedure and its risks were fully explained to the patient who understood and agreed for the procedure. DESCRIPTION OF PROCEDURE: After local infiltration with 1% lidocaine, a 6-Yi sheath was placed to the right femoral artery. Left and right coronary angiographies were performed with 6-Yi JL-4 and JR-4 diagnostic catheters. Left ventriculogram was performed with 6-Yi pigtail catheter. The patient tolerated the procedure well without any complications. ANGIOGRAPHIC FINDINGS: Selective injection of the left coronary artery revealed the left main to be a normal vessel. Left main bifurcated into a medium-sized LAD and medium-sized circumflex artery. The entire left coronary circulation was angiographically unremarkable. Selective injection of the right coronary artery revealed medium-sized dominant vessel that tapered to 50% of its diameter in the distal segment and before it bifurcated into PLV and PDA branches. Left ventriculogram performed in the DAVIS projection revealed dilated left ventricle with severe diffuse left ventricular hypokinesis. Ejection fraction was estimated at 50%. CONCLUSION: Nonischemic cardiomyopathy, most likely hypertensive and insignificant distal right coronary artery disease of about 50% tapering in the diameter of the distal. RECOMMENDATIONS: Optimize medical management with diuretics, afterload-reducing agents, and beta blockers. EP evaluation has been requested for a LifeVest placement. Tanner Pepe MD
--- NOTE | 2018-10-30 10:24 | CP.PCM.CON ---
History of Present Illness - History of Present Illness History of Present Illness: Cardiac EP consult Chart and imaging reviewed Mr. Lopez has a heart failure syndrome with left ventricular systolic dysfunction with non obstructive coronary arteries Likely hypertensive heart disease with a potential for recovery There are no obvious high risk features for sudden (syncope, Ventricular tachycardia) An external defibrillator (life vest) is a reasonable option discussed with the patient prognosis options procedures caveats in using the life vest; he is agreeable and conversant; contacted the [employer] Possible life vest Outpatient follow up Past Patient History - Past Medical History & Family History Past Medical History?: No - Past Social History Smoking Status: Current Some Days Smoker - MUSCULOSKELETAL/RHEUMATOLOGICAL Hx Falls: No - PSYCHIATRIC Hx Substance Use: No - SURGICAL HISTORY Hx Surgeries: No - ANESTHESIA Hx Anesthesia: No Has any member of the family had a problem w/ anesthesia?: No Meds Allergies/Adverse Reactions: Allergies Allergy/AdvReac Type Severity Reaction Status Date / Time No Known Allergies Allergy Unverified 10/24/18 21:45 - Medications Medications: Current Medications Aspirin (Aspirin) 325 mg PO DAILY [facility] Last Admin: 10/30/18 09:15 Dose: 325 mg Clonidine HCl (Catapres) 0.3 mg PO TID [facility] Last Admin: 10/30/18 09:16 Dose: 0.3 mg Furosemide (Lasix) 40 mg IVP Q12 [facility] Last Admin: 10/30/18 09:15 Dose: 40 mg Lisinopril (Zestril) 20 mg PO DAILY [facility] Last Admin: 10/30/18 09:15 Dose: 20 mg Metoprolol Tartrate (Lopressor) 50 mg PO BID [facility] Last Admin: 10/30/18 09:16 Dose: 50 mg Nitroglycerin (Nitro-Bid 2% Oint) 1 ea TOP Q6 PRN PRN Reason: Systolic Blood Pressure Spironolactone (Aldactone) 25 mg PO DAILY [facility] Last Admin: 10/30/18 09:15 Dose: 25 mg Results - Vital Signs Recent Vital Signs: Last Vital Signs Temp 98.4 F 10/30/18 07:00 Pulse 76 10/30/18 07:00 Resp 20 10/30/18 07:00 BP 137/87 10/30/18 09:15 Pulse Ox 99 10/30/18 07:00 - Labs Result Diagrams: 10/25/18 06:26 10/28/18 16:38
--- NOTE | 2018-10-30 10:55 | CP.PCM.PN ---
Subjective - Date & Time of Evaluation Date of Evaluation: 10/30/18 Time of Evaluation: 10:53 - Subjective Subjective: pt feels jim reno arrangement for defibrilator Objective - Vital Signs/Intake and Output Vital Signs (last 24 hours): Temp Pulse Resp BP Pulse Ox 98.4 F 76 20 137/87 99 10/30/18 07:00 10/30/18 07:00 10/30/18 07:00 10/30/18 09:15 10/30/18 07:00 Intake and Output: 10/30/18 10/30/18 06:59 18:59 Intake Total 480 Output Total 850 Balance -370 - Medications Medications: Current Medications Aspirin (Aspirin) 325 mg PO DAILY [facility] Last Admin: 10/30/18 09:15 Dose: 325 mg Clonidine HCl (Catapres) 0.3 mg PO TID [facility] Last Admin: 10/30/18 09:16 Dose: 0.3 mg Furosemide (Lasix) 40 mg IVP Q12 [facility] Last Admin: 10/30/18 09:15 Dose: 40 mg Lisinopril (Zestril) 20 mg PO DAILY [facility] Last Admin: 10/30/18 09:15 Dose: 20 mg Metoprolol Tartrate (Lopressor) 50 mg PO BID [facility] Last Admin: 10/30/18 09:16 Dose: 50 mg Nitroglycerin (Nitro-Bid 2% Oint) 1 ea TOP Q6 PRN PRN Reason: Systolic Blood Pressure Spironolactone (Aldactone) 25 mg PO DAILY [facility] Last Admin: 10/30/18 09:15 Dose: 25 mg - Labs Labs: 10/25/18 06:26 10/28/18 16:38 PT 15.4 SECONDS (9.7-12.2) H 10/24/18 22:18 INR 1.4 10/24/18 22:18 APTT 32 SECONDS (21-34) 10/24/18 22:18 - Constitutional Appears: Non-toxic - Head Exam Head Exam: ATRAUMATIC - Eye Exam Eye Exam: Normal appearance Pupil Exam: NORMAL ACCOMODATION - ENT Exam ENT Exam: Mucous Membranes Moist - Neck Exam Neck Exam: Full ROM - Respiratory Exam Respiratory Exam: NORMAL BREATHING PATTERN - Cardiovascular Exam Cardiovascular Exam: REGULAR RHYTHM - GI/Abdominal Exam GI & Abdominal Exam: Normal Bowel Sounds - Rectal Exam Rectal Exam: NORMAL INSPECTION - Exam Exam: NORMAL INSPECTION - Extremities Exam Extremities Exam: Normal Capillary Refill - Back Exam Back Exam: NORMAL INSPECTION - Neurological Exam Neurological Exam: Normal Gait - Psychiatric Exam Psychiatric exam: Normal Mood - Skin Skin Exam: Normal Color Assessment and Plan - Assessment and Plan (Free Text) Plan: htn ht disease chf cont as per orders
--- NOTE | 2018-10-30 21:07 | PN ---
DATE: 10/30/2018 SUBJECTIVE: The patient denies chest pain, shortness of breath or any groin bleeding. OBJECTIVE: VITAL SIGNS: Blood pressure 123/82, heart rate 61, temperature 97.7, respirations 18. HEENT: Normocephalic. CHEST: Clear. HEART: S1 and S2 regular. EXTREMITIES: No hematoma. ASSESSMENT: 1. Dilated cardiomyopathy. The ejection fraction was estimated at 20% and it was mistakenly transcribed in my report as 50% and that will be corrected. 2. Hypertension. RECOMMENDATIONS: Continue current Aldactone, aspirin, clonidine, IV Lasix, Lopressor and Zestril. ADDENDUM: Ejection fraction was mentioned as 50% on the cardiac cath report which is an error in public relations account supervisor and it was documented in the receiver/laborer to be 20%. Tanner Pepe MD
[2018-10-31 01:31] VITALS: RESP 20
[2018-10-31 07:44] VITALS: TEMP 98.3; O2SAT 99
[2018-10-31 08:13] VITALS: PULSE 77
[2018-10-31 10:14] VITALS: BP 137/88
--- NOTE | 2018-10-31 10:34 | CP.PCM.PN ---
Subjective - Date & Time of Evaluation Date of Evaluation: 10/31/18 Time of Evaluation: 10:32 - Subjective Subjective: pt feels jim will be seen by dr ghotra today for plan of care has life vest on Objective - Vital Signs/Intake and Output Vital Signs (last 24 hours): Temp Pulse Resp BP Pulse Ox 98.3 F 77 20 137/88 99 10/31/18 07:00 10/31/18 07:00 10/31/18 07:00 10/31/18 10:11 10/31/18 07:00 Intake and Output: 10/31/18 10/31/18 06:59 18:59 Intake Total 320 Output Total 800 Balance -480 - Medications Medications: Current Medications Aspirin (Aspirin) 325 mg PO DAILY [facility] Last Admin: 10/31/18 10:12 Dose: 325 mg Clonidine HCl (Catapres) 0.3 mg PO TID [facility] Last Admin: 10/31/18 10:11 Dose: 0.3 mg Furosemide (Lasix) 40 mg IVP Q12 [facility] Last Admin: 10/31/18 10:11 Dose: 40 mg Lisinopril (Zestril) 20 mg PO DAILY [facility] Last Admin: 10/31/18 10:11 Dose: 20 mg Metoprolol Tartrate (Lopressor) 50 mg PO BID [facility] Last Admin: 10/31/18 10:11 Dose: 50 mg Nitroglycerin (Nitro-Bid 2% Oint) 1 ea TOP Q6 PRN PRN Reason: Systolic Blood Pressure Spironolactone (Aldactone) 25 mg PO DAILY [facility] Last Admin: 10/31/18 10:12 Dose: 25 mg - Labs Labs: 10/25/18 06:26 10/28/18 16:38 PT 15.4 SECONDS (9.7-12.2) H 10/24/18 22:18 INR 1.4 10/24/18 22:18 APTT 32 SECONDS (21-34) 10/24/18 22:18 - Constitutional Appears: Non-toxic - Head Exam Head Exam: NORMAL INSPECTION - Eye Exam Eye Exam: Normal appearance Pupil Exam: NORMAL ACCOMODATION - ENT Exam ENT Exam: Normal Exam - Respiratory Exam Respiratory Exam: Decreased Breath Sounds, NORMAL BREATHING PATTERN - Cardiovascular Exam Cardiovascular Exam: REGULAR RHYTHM - GI/Abdominal Exam GI & Abdominal Exam: Normal Bowel Sounds - Extremities Exam Extremities Exam: Normal Inspection - Back Exam Back Exam: NORMAL INSPECTION - Psychiatric Exam Psychiatric exam: Normal Mood - Skin Skin Exam: Normal Color Assessment and Plan - Assessment and Plan (Free Text) Assessment: ac chf htn htdisease nonobst cad Plan: cont as per orderdes await dr ghotra plan of care
--- NOTE | 2018-10-31 14:09 | CP.PCM.PN ---
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 , denies any complaints BP stable vest ready and at bedside and instructions given by Your Office Agent Objective - Vital Signs/Intake and Output Vital Signs (last 24 hours): Temp Pulse Resp BP Pulse Ox 98.3 F 77 20 137/88 99 10/31/18 07:00 10/31/18 07:00 10/31/18 07:00 10/31/18 10:11 10/31/18 07:00 Intake and Output: 10/31/18 10/31/18 06:59 18:59 Intake Total 320 Output Total 800 Balance -480 - Medications Medications: Current Medications Aspirin (Aspirin) 325 mg PO DAILY [facility] Last Admin: 10/31/18 10:12 Dose: 325 mg Clonidine HCl (Catapres) 0.3 mg PO TID [facility] Last Admin: 10/31/18 13:25 Dose: 0.3 mg Furosemide (Lasix) 40 mg IVP Q12 [facility] Last Admin: 10/31/18 10:11 Dose: 40 mg Lisinopril (Zestril) 20 mg PO DAILY [facility] Last Admin: 10/31/18 10:11 Dose: 20 mg Metoprolol Tartrate (Lopressor) 50 mg PO BID [facility] Last Admin: 10/31/18 10:11 Dose: 50 mg Nitroglycerin (Nitro-Bid 2% Oint) 1 ea TOP Q6 PRN PRN Reason: Systolic Blood Pressure Spironolactone (Aldactone) 25 mg PO DAILY [facility] Last Admin: 10/31/18 10:12 Dose: 25 mg - Labs Labs: 10/25/18 06:26 10/28/18 16:38 PT 15.4 SECONDS (9.7-12.2) H 10/24/18 22:18 INR 1.4 10/24/18 22:18 APTT 32 SECONDS (21-34) 10/24/18 22:18 Assessment and Plan - Assessment and Plan (Free Text) Assessment: A/P 48 yr old male admitted with sob /Hypertensive urgency, CHF , Non-STEMI bp stable with current medications s/p Cardiac cath Life vest already at bedside D/w Dr. Pepe . cleared fro discharge from cardiology stand point D/w Dr. Ameen cleared for discharge and f/u with his office in [address] Juares today, cleared for discharge discharge plan discussed with patient who understands and agrees with plan RX given for all current medications
--- NOTE | 2018-10-31 14:16 | PCM.HF ---
Heart Failure Core Measure - Heart Failure Ejection Fraction: Less Than 40 % ASHLEY Inhibitor Prescribed: Yes Beta-Hawa Prescribed: Metoprolol Succinate Angiotensin II Receptor Hawa Prescribed: No Contraindication/Reason for not providing: on ashley AnticoagulationTherapy for Atrial Fibrillation/Atrialflutter: No Contraindication/Reason for not providing: hx of a fib Aldosterone Antagonist Prescribed: Yes Hydralazine Nitrate Prescribed: No Contraindication/Reason for not providing: on calcium channel bloker Implantable Cardioverter Defibrillator Therapy: No Contraindication/Reason for not providing: life vest trail Cardiac Resynchronization Therapy Prescribed: No Contraindication/Reason for not providing: life vest trail - Follow up Will be discharged to: Home Follow Up Date (must be within 7 days from discharge): 11/05/18 Follow Up Time: 15:00
--- NOTE | 2018-11-01 17:44 | PN ---
DATE: 10/31/2018 SUBJECTIVE: The patient was seen yesterday and he had no shortness or breath or chest pain. PHYSICAL EXAMINATION: VITAL SIGNS: Blood pressure 106/88, heart rate 77, temperature 98.3, respirations 20. HEENT: Normocephalic. CHEST: Clear. HEART: S1 and S2 regular. EXTREMITIES: No edema. ASSESSMENT: 1. Nonischemic cardiomyopathy. 2. Hypertension. RECOMMENDATIONS: It was discussed with the patient that the patient will need long-term medical therapy and will be discharged on Aldactone, clonidine, aspirin, Lopressor, and Zestril. The patient has all the directions for using a LifeVest and will his echo repeated in three months prior to considering permanent ICU placement. Will follow with the cardiology clinic at [facility] and will be seen by Dr. Han. Tanner Pepe MD
--- NOTE | 2018-11-05 07:45 | DS ---
HISTORY OF PRESENT ILLNESS: The patient came into the emergency room on 10/24/2018. He is a 48-year-old who came in with shortness of breath and chest pain, couple of days before coming. He has no history of any significant illness in the past when he came into the emergency room. His blood pressure was 187/125 initially and his respiration was very 36, his pulse rate went up to 120. The patient was admitted to the intensive care unit. LABORATORY DATA: Exam was unremarkable except for INR 1.4, troponin was very high 0.1290 and the proBNP was 8670. Urine negative except for protein and blood. HOSPITAL COURSE: The patient's admission at the time he came in, he was in respiratory distress, uncontrolled hypertension, congestive heart failure, and non-STEMI. He was seen by Dr. Pepe and he was seen by Dr. Ashraf for discharge for the LifeVest. He has nonischemic cardiomyopathy and has hypertension. He had cardiac cath which showed nonobstructive coronaries. He was discharged on 10/31/2018, feeling fine. No complaints, no pain, and his vital signs were stable. He has Lopressor, Zestril, aspirin and clonidine medications to go with home and to follow up in the clinic for the Cardiology and he may come to my office for followup. FINAL DIAGNOSES: Acute congestive heart failure, hypertensive heart disease, congestive heart failure, [id number] myocardial infarction. The patient was very stable and happy. Sonia Juares MD
== END 2018-10-31 14:17 | disposition home or self-care (01) | DRG 280 ==
LOC: C.ER 21:18 → C.9E 23:44 → C.9I 10-25 09:20 → C.9E 10-25 10:25 → C.6T 10-25 14:30
PROVIDERS: ADMIT Internal Medicine; ATTEND Internal Medicine
PROC: 4A023N7 Measurement of Cardiac Sampling and Pressure, Left Heart, Percutaneous Approach (ICD-10-PCS; principal; 2018-10-29)
PROC: B2161ZZ Fluoroscopy of Right and Left Heart using Low Osmolar Contrast (ICD-10-PCS; 2018-10-29)
PROC: B2111ZZ Fluoroscopy of Multiple Coronary Arteries using Low Osmolar Contrast (ICD-10-PCS; 2018-10-29)
DX: I21.4 Non-ST elevation (NSTEMI) myocardial infarction (principal); I50.23 Acute on chronic systolic (congestive) heart failure; I42.0 Dilated cardiomyopathy; I16.0 Hypertensive urgency; I11.0 Hypertensive heart disease with heart failure; F17.200 Nicotine dependence, unspecified, uncomplicated; I25.10 Atherosclerotic heart disease of native coronary artery without angina pectoris; R06.03 Acute respiratory distress